=== PATIENT | female | born 1970 | race American Indian/Alaskan Native ===

== ENCOUNTER 2017-06-26 18:55 | Emergency (ER) | payer OTHER ==
[2017-06-26 19:06] VITALS: RESP 18; TEMP 97.7; O2SAT 100
--- NOTE | 2017-06-26 19:44 | ED PDOC ---
HPI: Chest Pain Time Seen by Provider: 06/26/17 19:18 Chief Complaint (Nursing): Chest Pain Chief Complaint (Provider): Chest Pain History Per: Patient History/Exam Limitations: no limitations Onset/Duration Of Symptoms: Hrs (x8) Current Symptoms Are (Timing): Still Present Additional Complaint(s): Socorro Palacio is a 46 year old female with previous medical history of treated tuberculosis, who presents to the emergency department with a complaint of right -sided chest pain, described as a "burning pressure", radiating to mid-sternum and throat ongoing sine 1200 today. Denied fever, chills, nausea, vomiting, sweats, weakness, palpitations, shortness of breath, cough or taking pain medication prior to arrival. Patient reported chest pain is worse when lying flat. PMD: none provided Past Medical History Reviewed: Historical Data, Nursing Documentation, Vital Signs Vital Signs: Last Vital Signs Temp 97.7 F 06/26/17 19:04 Pulse 62 06/26/17 21:04 Resp 18 06/26/17 21:04 BP 117/75 06/26/17 21:04 Pulse Ox 100 06/26/17 21:04 - Medical History PMH: No Chronic Diseases Other PMH: treated tuberculosis - Surgical History Surgical History: No Surg Hx - Family History Family History: States: Unknown Family Hx - Social History Current smoker - smoking cessation education provided: Yes Alcohol: None Drugs: Denies - Home Medications Home Medications: Ambulatory Orders Medication Instructions Recorded Naproxen [Naprosyn] 500 mg PO BID #20 tablet 11/17/15 Omeprazole 20 mg PO DAILY #30 capsule. 06/26/17 - Allergies Allergies/Adverse Reactions: Allergies Allergy/AdvReac Type Severity Reaction Status Date / Time No Known Allergies Allergy Verified 11/17/15 14:16 Review of Systems ROS Statement: Except As Marked, All Systems Reviewed And Found Negative Constitutional: Negative for: Fever, Chills, Sweats, Weakness ENT: Positive for: Throat Pain Cardiovascular: Positive for: Chest Pain (right-sided to midsternal). Negative for: Palpitations Respiratory: Negative for: Cough, Shortness of Breath Gastrointestinal: Negative for: Nausea, Vomiting Physical Exam - Reviewed Nursing Documentation Reviewed: Yes Vital Signs Reviewed: Yes - Physical Exam Appears: Positive for: Well, Non-toxic, No Acute Distress Head Exam: Positive for: ATRAUMATIC, NORMAL INSPECTION, NORMOCEPHALIC Skin: Positive for: Normal Color Eye Exam: Positive for: Normal appearance, EOMI, PERRL. Negative for: Nystagmus ENT: Positive for: Normal ENT Inspection Neck: Positive for: Normal, Painless ROM, Supple. Negative for: Decreased ROM Cardiovascular/Chest: Positive for: Regular Rate, Rhythm, Chest Non Tender Respiratory: Positive for: Normal Breath Sounds, Accessory Muscle Use. Negative for: Decreased Breath Sounds, Crackles, Rales, Rhonchi, Wheezing, Respiratory Distress Gastrointestinal/Abdominal: Positive for: Normal Exam, Bowel Sounds, Soft. Negative for: Tenderness Extremity: Positive for: Normal ROM. Negative for: Tenderness, Pedal Edema, Deformity Neurologic/Psych: Positive for: Alert, Oriented - Laboratory Results Result Diagrams: 06/26/17 20:03 06/26/17 20:03 - ECG O2 Sat by Pulse Oximetry: 100 (RA) Pulse Ox Interpretation: Normal Medical Decision Making Medical Decision Making: Initial Impression: Acid reflux Initial Plan: * EKG * BMP * Troponin I * CBC * CXR * Protonix inj 40mg IVP Time: 1929 --EKG: NSR at [address] or Q-wave changes. Time: 2129 -- Workup negative, patient's symptoms resolved with PPI. Explained importance of followup, smoking cessation, and diet modification. Return precautions given. Scribe Attestation: Documented by Leeanna Barron, acting as a scribe for Trey Azar MD. Provider Scribe Attestation: All medical record entries made by the Scribe were at my direction and personally dictated by me. I have reviewed the chart and agree that the record accurately reflects my personal performance of the history, physical exam, medical decision making, and the department course for this patient. I have also personally directed, reviewed, and agree with the discharge instructions and disposition. Disposition - Clinical Impression Clinical Impression: Chest pain - Disposition Referrals: Vashti Lee [Outside] Disposition: Routine/Home Disposition Time: 21:30 Condition: STABLE Prescriptions: Omeprazole 20 mg PO DAILY #30 capsule.dr Instructions: Diet for Ulcers and Gastritis (ED), Gastroesophageal Reflux Disease (ED), Noncardiac Chest Pain (ED) Forms: [employer] (Czech)
[2017-06-26 20:08] LABS: BASO # 0.1 K/uL (0.0-0.2); BASO % 1.6 % (0.0-2.0); EOS # 0.1 K/uL (0.0-0.7); EOS % 1.6 % (0.0-4.0); LYMPH % 51.8 % (20.0-40.0); MEAN CELL VOLUME 95.2 fl (81.0-99.0); MEAN CORPUSCULAR HEMOGLOBIN 31.5 pg (27.0-31.0); MEAN CORPUSCULAR HGB CONC 33.1 g/dL (33.0-37.0); MEAN PLATELET VOLUME 9.6 fl (7.2-11.7); MONO # 0.3 K/uL (0.0-0.8); MONO % 4.5 % (0.0-10.0); NEUT # 3.1 K/uL (1.8-7.0); NEUT % 40.5 % (50.0-75.0); NRBC % 0.1 % (0.0-0.0); WHITE BLOOD COUNT 7.6 K/uL (4.8-10.8)
[2017-06-26 20:20] LABS: BLOOD UREA NITROGEN 15 mg/dl (7-17); CALCIUM 9.4 mg/dL (8.4-10.2); CARBON DIOXIDE 29 mmol/L (22-30); CHLORIDE 105 mmol/L (98-107); GFR AFRICAN-AMERICAN > 60; GLUCOSE,RANDOM 95 mg/dL (65-105); POTASSIUM 4.2 MMOL/L (3.6-5.0); SODIUM 141 mmol/l (132-148)
[2017-06-26 21:39] VITALS: BP 117/75; PULSE 62
--- NOTE | 2017-06-27 08:51 | RAD ---
HISTORY: CP, hx of treated TB in 2006 COMPARISON: No prior. TECHNIQUE: Chest PA and lateral FINDINGS: LUNGS: No active pulmonary disease. PLEURA: No significant pleural effusion identified. No pneumothorax apparent. CARDIOVASCULAR: Normal. OSSEOUS STRUCTURES: No significant abnormalities. VISUALIZED UPPER ABDOMEN: Normal. OTHER FINDINGS: None. IMPRESSION: No active disease.
--- NOTE | 2017-06-27 10:41 | CARD ---
APPROVED REPORT EKG Measurement Heart [id number] <Conclusion> Normal sinus rhythm Normal ECG
== END 2017-06-26 21:32 | disposition home or self-care (01) ==
LOC: H.ER 18:55
DX: R07.89 Other chest pain (principal); K21.9 Gastro-esophageal reflux disease without esophagitis; Z86.11 Personal history of tuberculosis
CPT/HCPCS: 71020; 80048; 81025; 84484; 85025; 93005; 96374; 99283; C9113

== ENCOUNTER 2018-03-26 07:01 | Emergency (ER) | payer OTHER ==
[2018-03-26 07:03] VITALS: BMI 29.6
[2018-03-26 07:06] VITALS: BP 113/63; PULSE 76; RESP 19; TEMP 98.4; O2SAT 97
--- NOTE | 2018-03-26 07:27 | ED PDOC ---
HPI: CCC, URI, Sore Throat Time Seen by Provider: 03/26/18 07:19 Chief Complaint (Nursing): Flu-like Symptoms History Per: Patient Onset/Duration Of Symptoms: Days (2) Current Symptoms Are (Timing): Still Present Location Of Pain: Throat, Diffuse Myalgias, Headache Associated Symptoms: Sore Throat, Cough, Nasal Congestion. denies: Fever, Sputum Severity: Mild Additional Complaint(s): Nasal congestion, sore throat and nonproductive cough since yesterday. Denies fever. Past Medical History Vital Signs: Last Vital Signs Temp 98.4 F 03/26/18 07:03 Pulse 76 03/26/18 07:03 Resp 19 03/26/18 07:03 BP 113/63 03/26/18 07:03 Pulse Ox 97 03/26/18 07:03 - Medical History PMH: No Chronic Diseases - Family History Family History: States: Unknown Family Hx - Home Medications Home Medications: Ambulatory Orders Medication Instructions Recorded Azithromycin [Zithromax] 250 mg PO DAILY #6 tab 03/26/18 Fluticasone Nasal [Flonase] 1 actuation NS DAILY #1 spr 03/26/18 - Allergies Allergies/Adverse Reactions: Allergies Allergy/AdvReac Type Severity Reaction Status Date / Time No Known Allergies Allergy Verified 03/26/18 07:16 Review of Systems Constitutional: Negative for: Fever, Chills ENT: Positive for: Nose Congestion, Throat Pain Respiratory: Positive for: Cough. Negative for: Sputum Physical Exam - Physical Exam Appears: Positive for: Non-toxic, No Acute Distress Skin: Positive for: Normal Color Eye Exam: Positive for: Normal appearance ENT: Positive for: TM Is/Are (Nl), Pharyngeal Erythema. Negative for: Sinus Pain/Drainage, Tonsillar Exudate Neck: Positive for: Normal, Painless ROM Cardiovascular/Chest: Positive for: Regular Rate, Rhythm Respiratory: Positive for: CNT, Normal Breath Sounds - ECG O2 Sat by Pulse Oximetry: 97 Disposition - Clinical Impression Clinical Impression: Upper respiratory infection - Patient ED Disposition Is Patient to be Admitted: No - Disposition Disposition: Routine/Home Disposition Time: 07:26 Condition: FAIR Prescriptions: Azithromycin [Zithromax] 250 mg PO DAILY #6 tab Fluticasone Nasal [Flonase] 1 actuation NS DAILY #1 spr Instructions: Bacterial Upper Respiratory Infection, Adult
== END 2018-03-26 08:12 | disposition home or self-care (01) ==
LOC: H.ER 07:01
DX: J06.9 Acute upper respiratory infection, unspecified (principal)

== ENCOUNTER 2018-10-13 09:14 | Emergency (ER) | payer OTHER ==
[2018-10-13 09:20] VITALS: BP 107/59; PULSE 74; RESP 18; TEMP 97.1; O2SAT 100; BMI 29.4
--- NOTE | 2018-10-13 10:46 | RAD ---
Date of service: 10/13/2018 PROCEDURE: Bilateral Knee Radiographs. HISTORY: b/l knee pain x1 month COMPARISON: None. FINDINGS: BONES: Right Knee: Normal. No fracture. Left Knee: Normal. No fracture. JOINTS: Right Knee: Normal. No osteoarthritis. Left knee: Normal. No osteoarthritis. SOFT TISSUES: Right Knee: Normal. Left Knee: Normal. JOINT EFFUSION: Right Knee: None. Left Knee: None. OTHER FINDINGS: None. IMPRESSION: No evidence of acute displaced fracture nor dislocation. No significant degenerative osteoarthritis.
--- NOTE | 2018-10-13 11:10 | ED PDOC ---
Lower Extremity Pain/Injury Time Seen by Provider: 10/13/18 09:48 Chief Complaint (Nursing): Lower Extremity Problem/Injury Chief Complaint (Provider): Lower Extremity Problem/Injury History Per: Patient History/Exam Limitations: no limitations Onset/Duration Of Symptoms: Persistent (x1 month) Current Symptoms Are (Timing): Still Present Additional Complaint(s): 48 year old female, [employer] employee, presents to ED with a complaint of bilateral (left > right) knee pain that exacerbates with bending for 1 month. She denies any acute trauma, injury, back pain, rash, numbness, weakness, significant swelling or redness to knees or other joints. Patient states that she has been wearing supportive stocking for comfort. Of note, patient reports ibuprofen allergy, however, she has been taking Naprosyn with minimal relief. PCP: none provided Past Medical History Reviewed: Historical Data, Nursing Documentation, Vital Signs Vital Signs: Last Vital Signs Temp 97.1 F L 10/13/18 09:19 Pulse 74 10/13/18 09:19 Resp 18 10/13/18 09:19 BP 107/59 L 10/13/18 09:19 Pulse Ox 100 10/13/18 09:19 - Medical History PMH: No Chronic Diseases - Family History Family History: States: Unknown Family Hx - Social History Current smoker - smoking cessation education provided: Yes - Home Medications Home Medications: Ambulatory Orders Medication Instructions Recorded Acetaminophen [Pain Relief] 650 mg PO Q4 #30 capsule 10/13/18 - Allergies Allergies/Adverse Reactions: Allergies Allergy/AdvReac Type Severity Reaction Status Date / Time ibuprofen AdvReac VOMITING Verified 10/13/18 09:32 Review of Systems ROS Statement: Except As Marked, All Systems Reviewed And Found Negative Musculoskeletal: Positive for: Leg Pain (bilateral knee). Negative for: Back Pain, Other (knee swelling or redness) Skin: Negative for: Rash Neurological: Negative for: Weakness, Numbness Physical Exam - Reviewed Nursing Documentation Reviewed: Yes Vital Signs Reviewed: Yes - Physical Exam Appears: Positive for: No Acute Distress Pulses-Dorsalis Pedis (L): 2+ Pulses-Dorsalis Pedis (R): 2+ Extremity: Positive for: Normal ROM (bilateral knees, ankles, and hip), Tenderness (grossly on bilateral lateral knees - left > right). Negative for: Other (joint laxity or crepitus of bilateral knees) Neurologic/Psych: Positive for: Alert, Oriented. Negative for: Motor/Sensory Deficits - ECG O2 Sat by Pulse Oximetry: 100 (RA) Pulse Ox Interpretation: Normal Medical Decision Making Medical Decision Making: Time: 954 Initial Plan: work up with imaging and pain control. * XR NAM knee * Tylenol 650mg PO Time: 1040 --XR NAM knee: (-) fracture or dislocation on preliminary read by provider. Upon reevaluation, patient is medically stable and requires no further treatment in the ED at this time. Patient will be discharged home and recommended strength training, supportive brace, and follow up with orthopedist. Will contact patient if abnormality found on official read. Counseling was provided and all questions were answered regarding diagnosis. There is agreement to discharge plan. Return perameters discussed. Clinical Impression: Arthralgia of knee Scribe Attestation: Documented by Leeanna Barron, acting as a scribe for German Rivers III, DO. Provider Scribe Attestation: All medical record entries made by the Scribe were at my direction and personally dictated by me. I have reviewed the chart and agree that the record accurately reflects my personal performance of the history, physical exam, medical decision making, and the department course for this patient. I have also personally directed, reviewed, and agree with the discharge instructions and disposition. Disposition - Clinical Impression Clinical Impression: Arthralgia of knee - Patient ED Disposition Is Patient to be Admitted: No Counseled Patient/Family Regarding: Studies Performed, Diagnosis, Need For Followup - Disposition Referrals: Obdulio Tate III, MD [Staff Provider] - Disposition: Routine/Home Disposition Time: 10:40 Condition: STABLE Additional Instructions: Recommend knee brace for support and comfort when working, followup with PMD/ orthopedics for further testing. You may require physical therapy or other testing. Prescriptions: Acetaminophen [Pain Relief] 650 mg PO Q4 #30 capsule Instructions: Knee Pain, Patellofemoral Pain Forms: [facility] (I[place]ic), [employer] [employer] [facility] ED School/Work Excuse
== END 2018-10-13 11:18 | disposition home or self-care (01) ==
LOC: H.ER 09:14
DX: M25.562 Pain in left knee (principal); M25.561 Pain in right knee; Z88.6 Allergy status to analgesic agent

== ENCOUNTER 2018-12-20 08:34 | Emergency (ER) | payer OTHER ==
[2018-12-20 08:37] VITALS: BMI 29.6
[2018-12-20 08:39] VITALS: TEMP 99; O2SAT 98
--- NOTE | 2018-12-20 09:11 | ED PDOC ---
Lower Extremity Pain/Injury Time Seen by Provider: 12/20/18 08:51 Chief Complaint (Nursing): Lower Extremity Problem/Injury Chief Complaint (Provider): Left leg pain History Per: Patient History/Exam Limitations: no limitations Onset/Duration Of Symptoms: Persistent Current Symptoms Are (Timing): Still Present Additional History Per: Patient Additional Complaint(s): 48yo female, otherwise well, comes to ER reporting left leg pain, present x "couple months." She denies any trauma or injury and states she also has knee pain. She denies any weakness, numbness, tingling, leg swelling. Patient has been evaluated for similar pain prior, had XR with no acute findings. She has been taking Motrin at home with minimal pain. No additional complaints. PMD: None Past Medical History Reviewed: Historical Data, Nursing Documentation, Vital Signs Vital Signs: Last Vital Signs Temp 99 F 12/20/18 08:37 Pulse 78 12/20/18 08:37 Resp 16 12/20/18 08:37 BP 112/57 L 12/20/18 08:37 Pulse Ox 98 12/20/18 08:37 - Medical History PMH: No Chronic Diseases - Surgical History Surgical History: No Surg Hx - Family History Family History: States: Unknown Family Hx - Home Medications Home Medications: Ambulatory Orders Medication Instructions Recorded Acetaminophen [Pain Relief] 650 mg PO Q4 #30 capsule 10/13/18 Naproxen [Naprosyn] 500 mg PO BID PRN #15 tablet 12/20/18 - Allergies Allergies/Adverse Reactions: Allergies Allergy/AdvReac Type Severity Reaction Status Date / Time ibuprofen AdvReac VOMITING Verified 10/13/18 09:32 Review of Systems ROS Statement: Except As Marked, All Systems Reviewed And Found Negative Musculoskeletal: Positive for: Leg Pain Neurological: Negative for: Weakness, Numbness Physical Exam - Reviewed Nursing Documentation Reviewed: Yes Vital Signs Reviewed: Yes - Physical Exam Appears: Positive for: Non-toxic, No Acute Distress Head Exam: Positive for: ATRAUMATIC, NORMAL INSPECTION, NORMOCEPHALIC Skin: Positive for: Normal Color Eye Exam: Positive for: Normal appearance Neck: Positive for: Supple Cardiovascular/Chest: Positive for: Regular Rate, Rhythm. Negative for: Tachycardia Respiratory: Positive for: Normal Breath Sounds. Negative for: Respiratory Distress Gastrointestinal/Abdominal: Positive for: Soft Back: Positive for: Normal Inspection Extremity: Positive for: Normal ROM, Tenderness (diffuse anterior left knee tenderness). Negative for: Calf Tenderness, Deformity, Swelling Neurological/Psych: Positive for: Awake, Alert, Gait (steady) - ECG O2 Sat by Pulse Oximetry: 98 (RA) Pulse Ox Interpretation: Normal Medical Decision Making Medical Decision Makinyo female with left leg pain, musculoskeletal pain Plan: -- Tylenol 650mg Po -- US Duplex left leg 1200 US Doppler IMPRESSION: No sonographic or Doppler evidence for DVT in left lower extremity. patient with improvement in pain and stable for discharge home. Informed to follow up with PMD/Clinic in 2-3 days. Scribe Attestation: Documented by Iwona Ramirez acting as a scribe for Michelle Berman MD. Provider Attestation: All medical record entries made by the Scribe were at my direction and personally dictated by me. I have reviewed the chart and agree that the record accurately reflects my personal performance of the history, physical exam, medical decision making, and the department course for this patient. I have also personally directed, reviewed, and agree with the discharge instructions and disposition. Disposition - Clinical Impression Clinical Impression: Leg pain - Disposition Disposition: Routine/Home Disposition Time: 12:00 Condition: STABLE Additional Instructions: FOLLOW-UP WITH PMD WITHIN 2 DAYS FOR REEVALUATION. Prescriptions: Naproxen [Naprosyn] 500 mg PO BID PRN #15 tablet PRN Reason: Pain, Moderate (4-7) Instructions: Muscle and Bone Pain (DC), Knee Pain Forms: [facility] (South Korean)
--- NOTE | 2018-12-20 10:39 | US ---
Date of service: 12/20/2018 HISTORY: LLE pain. PRIORS: None. FINDINGS: 2-D, color and duplex Doppler analysis of the lower extremity venous circulation using routine protocol from the femoral veins through the popliteal veins. Venous compressibility: Normal. Flow and augmentation patterns: Normal. Visualized veins upper third of calf: Normal. Otero cyst: None. IMPRESSION: No sonographic or Doppler evidence for DVT in left lower extremity.
[2018-12-20 13:37] VITALS: BP 118/62; PULSE 72; RESP 18
== END 2018-12-20 12:20 | disposition home or self-care (01) ==
LOC: H.ER 08:34
DX: M79.605 Pain in left leg (principal); Z88.6 Allergy status to analgesic agent